=== PATIENT | male | born 1975 ===

== ENCOUNTER 2021-05-01 16:15 | Emergency (ER) | payer SELFPAY ==
[2021-05-01 17:28] LABS: BLOOD UREA NITROGEN,BUN 11 mg/dL (7.0-18.0); CARBON DIOXIDE,CO2 28.8 mmol/L (21.0-32.0); CHLORIDE,CL 102 mmol/L (98-107); GLUCOSE RANDOM 135 mg/dL (74-106); POTASSIUM,K 4.5 mmol/L (3.5-5.1); SODIUM,NA 140 mmol/L (136-148)
--- NOTE | 2021-05-01 17:39 | PCM.EKG ---
#1 Interpretation EKG Interpretation Comments: EKG done 05/01/2021 at 4:20 PM shows sinus rhythm heart rate 70 [address] [address] and T normal QRS normal impression normal
[2021-05-01] MEDS ORDERED: Nicotine 21 MG/24 Hr Patch TRDERM STA (18:36)
--- NOTE | 2021-05-01 18:46 | EDM.PDOC ---
ED HPI GENERAL MEDICAL PROBLEM - General Chief Complaint: Chest Pain Stated Complaint: CHEST PAIN Time Seen by Provider: 05/01/21 18:31 Source of Information: Reports: Patient History Limitations: Reports: No Limitations - History of Present Illness INITIAL COMMENTS - FREE TEXT/NARRATIVE: HISTORY AND PHYSICAL: History of present illness: Patient is a 46-year-old male who presents emergency room today with concern of exertional chest pain that has been constant for the past 2 days and worsens with exertion. 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 and states that currently he is a [place] citizen. Patient states that at this time, he does not want a full cardiac evaluation and just wants troponin and EKG. Patient states he does not want any x-ray imaging as he does not have health insurance and states that he plans to go back to [place] where healthcare is free to get a stress test and the rest of his cardiac evaluation including an echo. Patient states he has been taking aspirin since the onset of his symptoms. Patient states he does have a history of type 2 diabetes and does smoke so he understands his risk factors. Patient denies fever, chills, shortness of breath, or cough. Denies headache, neck stiff ness, change in vision, syncope, or near syncope. Denies nausea, vomiting, abdominal pain, diarrhea, constipation, or dysuria. Has not noted any blood in urine or stool. Patient has been eating and drinking appropriately. Review of systems: As per history of present illness and below otherwise all systems reviewed and n egative. Past medical history: As per history of present illness and as reviewed below otherwise noncontributory. Surgical history: As per history of present illness and as reviewed below otherwise noncontributory. Social history: See social history for further information Family history: As per history of present illness and as reviewed below otherwise noncontributory. Physical exam: General: Patient is alert, oriented, and in no acute distress. Patient sitting comfortably on exam table. Reviewed by me. HEENT: Atraumatic, normocephalic, pupils equal and reactive bilaterally, negative for conjunctival pallor or scleral icterus, mucous membranes moist, throat clear, neck supple, nontender, trachea midline. No drooling or trismus noted. No meningeal signs. No hot potato voice noted. Lungs: Clear to auscultation, breath sounds equal bilaterally, chest nontender. Heart: S1S2, regular rate and rhythm without overt murmur Abdomen: Soft, nondistended, nontender. Negative for masses or hepatosplenomegaly. Negative for costovertebral tenderness. Pelvis: Stable nontender. Genitourinary: Deferred. Rectal: Deferred. Skin: Intact, warm, dry. No lesions or rashes noted. Extremities: Atraumatic, negative for cords or calf pain. Neurovascular unremarkable. Neuro: Awake, alert, oriented. Cranial nerves II through XII unremarkable. Cerebellum unremarkable. Motor and sensory unremarkable throughout. Exam nonfocal. Medical Decision Making: She is a 46-year-old male with a history of type 2 diabetes and smoking history, who presents emergency room today with concern of exertional chest pain x2 days. Upon arrival to the ED, patient is vitally stable and well-appearing on exam. Patient does not want a complete cardiac evaluation and is requesting just EKG and 1 troponin and some basic lab work. See Dr. Arroyo's dictation for specific EKG interpretation. Otherwise, normal sinus rhythm without STEMI. Mild derangements of lab work unremarkable. Troponin negative. Did not obtain chest x-ray as patient declines. All risks versus benefits discussed with patient and expresses understanding. Patient also declines delta Trop. Upon reevaluation of patient, he remains vitally stable and comfortable throughout stay in ED. Strict return precautions thoroughly discussed with patient. Discussed the importance for follow-up with a primary care provider for further evaluation including stress test. Voices understanding and is agreeable to plan of care. Denies any further questions or concerns at this time. Diagnostics: EKG, CBC, CMP, troponin (patient declines all other diagnostic completion for full cardiac evaluation) Therapeutics: Patient did take full dose aspirin today. Prescription: None Impression: Atypical chest pain Plan: 1. Take medication as prescribed. You can alternate ibuprofen and Tylenol as directed for pain and discomfort. 2. Follow-up with a primary care provider as discussed. Encouraged discussing a stress test outpatient as discussed. 3. Return to the ED as needed and as discussed. Definitive disposition and diagnosis as appropriate pending reevaluation and review of above. Chest Pain Score (Numeric/FACES): 4 - Related Data Allergies Allergy/AdvReac Type Severity Reaction Status Date / Time No Known Allergies Allergy Verified 05/01/21 16:25 Home Meds: Home Meds Insulin Glarg,Human.Rec.Analog [Lantus] 0 unit SUBCUT DAILY 05/01/21 [History] metFORMIN [Glucophage XR] 1,000 mg PO BIDMEALS 05/01/21 [History] Past Medical History - Past Surgical History Other HEENT Surgeries/Procedures: tooth removal Social & Family History - Family History Family Medical History: No Pertinent Family History - Tobacco Use Tobacco Use Status *Q: Current Every Day Tobacco User Years of Tobacco use: 20 Packs/Tins Daily: 1 ED ROS GENERAL - Review of Systems Review Of Systems: Comprehensive ROS is negative, except as noted in HPI. ED EXAM, GENERAL - Physical Exam Exam: See Below (see dictation) Course - Vital Signs Last Recorded V/S: Last Vital Signs Temp 207.7 F H 05/01/21 18:55 Pulse 75 05/01/21 18:55 Resp 18 05/01/21 18:31 BP 116/78 05/01/21 18:55 Pulse Ox 98 05/01/21 18:55 - Orders/Labs/Meds Labs: Laboratory Tests 05/01/21 05/01/21 Range/Units 16:40 16:40 WBC 7.93 (4.0-11.0) K/uL RBC 4.52 (4.50-5.90) M/uL Hgb 13.9 (13.0-17.0) g/dL Hct 40.3 (38.0-50.0) % MCV 89.2 (80.0-98.0) fL MCH 30.8 (27.0-32.0) pg MCHC 34.5 (31.0-37.0) g/dL RDW Std Deviation 42.9 (28.0-62.0) fl RDW Coeff of [place]andana 13 (11.0-15.0) % Plt Count 179 (150-400) K/uL MPV 10.80 (7.40-12.00) fL Neut % (Auto) 59.2 (48.0-80.0) % Lymph % (Auto) 32.0 (16.0-40.0) % [place] % (Auto) 5.5 (0.0-15.0) % Eos % (Auto) 3.0 (0.0-7.0) % Baso % (Auto) 0.3 (0.0-1.5) % Neut # (Auto) 4.7 (1.4-5.7) K/uL Lymph # (Auto) 2.5 H (0.6-2.4) K/uL [place] # (Auto) 0.4 (0.0-0.8) K/uL Eos # (Auto) 0.2 (0.0-0.7) K/uL Baso # (Auto) 0.0 (0.0-0.1) K/uL Nucleated RBC % 0.0 /100WBC Nucleated RBCs # 0 K/uL Sodium 140 (136-148) mmol/L Potassium 4.5 (3.5-5.1) mmol/L Chloride 102 (98-107) mmol/L Carbon Dioxide 28.8 (21.0-32.0) mmol/L BUN 11 (7.0-18.0) mg/dL Creatinine 0.9 (0.8-1.3) mg/dL Est Cr Clr Drug Dosing 101.47 mL/min Estimated GFR (MDRD) > 60.0 ml/min Glucose 135 H (74-106) mg/dL Calcium 8.0 L (8.5-10.1) mg/dL Total Bilirubin 0.4 (0.2-1.0) mg/dL AST 16 (15-37) IU/L ALT 38 (14-63) IU/L Alkaline Phosphatase 56 (46-116) U/L Troponin I < 0.050 (0.000-0.056) ng/mL Total Protein 7.3 (6.4-8.2) g/dL Albumin 3.8 (3.4-5.0) g/dL Globulin 3.5 (2.6-4.0) g/dL Albumin/Globulin Ratio 1.1 (0.9-1.6) Meds: Medications Discontinued Medications Generic Name Dose Route Start Last Admin Trade Name Freq PRN Reason Stop Dose Admin Nicotine 21 mg 05/01/21 18:36 Nicotine 21 Mg/24 Hr Patch TRDERM 05/01/21 18:37 NOW STA Departure - Departure Time of Disposition: 18:45 Disposition: Home, Self-Care 01 Clinical Impression: Atypical chest pain - Discharge Information Instructions: Chest Wall Pain, [id number] Referrals: PCP,Not In Area [Primary Care Provider] - Forms: ED Department Discharge Additional Instructions: The following information is given to patients seen in the emergency department who are being discharged to home. This information is to outline your options for follow-up care. We provide all patients seen in our emergency department with a follow-up referral. The need for follow-up, as well as the timing and circumstances, are variable depending upon the specifics of your emergency department visit. If you don't have a primary care physician on staff, we will provide you with a referral. We always advise you to contact your personal physician following an emergency department visit to inform them of the circumstance of the visit and for follow-up with them and/or the need for any referrals to a consulting specialist. The emergency department will also refer you to a specialist when appropriate. This referral assures that you have the opportunity for follow-up care with a specialist. All of these measure are taken in an effort to provide you with optimal care, which includes your follow-up. Under all circumstances we always encourage you to contact your private physician who remains a resource for coordinating your care. When calling for follow-up care, please make the office aware that this follow-up is from your recent emergency room visit. If for any reason you are refused follow-up, please contact the [facility] Emergency Department at and asked to speak to the emergency department charge nurse. [facility] [address] [place] [id number] [place] [address] 1. Take medication as prescribed. You can alternate ibuprofen and Tylenol as directed for pain and discomfort. 2. Follow-up with a primary care provider as discussed. Encouraged discussing a stress test outpatient as discussed. 3. Return to the ED as needed and as discussed. Sepsis Event Note (ED) - Evaluation Sepsis Screening Result: No Definite Risk - Focused Exam Vital Signs: Vital Signs Temp Pulse Resp BP Pulse Ox 05/01/21 18:55 207.7 F H 75 116/78 98 05/01/21 18:31 98.1 F 82 18 121/74 98 05/01/21 16:20 71 16 146/90 H 97
== END 2021-05-01 18:48 | disposition home or self-care (01) ==
LOC: MW.ED 16:15
DX: R07.89 Other chest pain (principal); E11.9 Type 2 diabetes mellitus without complications; F17.210 Nicotine dependence, cigarettes, uncomplicated; Z79.4 Long term (current) use of insulin
CPT/HCPCS: 36415; 80053; 84484; 85025; 93005; 99285-25